=== PATIENT | female | born 1985 | race Caucasian/White ===

== ENCOUNTER 2017-08-30 18:56 | Emergency (ER) | payer SELFPAY, MEDICAID ==
[2017-08-30 23:57] LABS: ADD MAN DIFF? NO
[2017-08-31 00:01] LABS: WHITE BLOOD COUNT 8.3 10^3/ul (4.8-10.8)
[2017-08-31 00:01] LABS: BASOPHILS % 0.5 % (0.0-2.0); EOSINOPHILS # 0.1 10^3/ul (0.0-0.5); EOSINOPHILS % 0.7 % (0.0-7.0); HEMATOCRIT 33.6 % (37.0-47.0); HEMOGLOBIN 11.3 g/dl (12.0-16.0); LYMPHOCYTES # 1.5 10^3/ul (0.8-2.9); LYMPHOCYTES % 17.5 % (15.0-51.0); MEAN CORPUSCULAR HEMOGLOBIN 32.6 pg (29.0-33.0); MEAN CORPUSCULAR HGB CONC 33.6 g/dl (32.0-37.0); MEAN CORPUSCULAR VOLUME 96.8 fl (82.0-101.0); MEAN PLATELET VOLUME 10.6 fl (7.4-10.4); MONOCYTE # 0.6 10^3/ul (0.3-0.9); MONOCYTES % 7.3 % (0.0-11.0); NEUTROPHIL # 6.1 10^3/ul (1.6-7.5); NEUTROPHILS % 73.3 % (39.0-77.0); PLATELET COUNT 278 10^3/UL (140-415); RED BLOOD COUNT 3.47 10^6/ul (4.20-5.40); RED CELL DISTRIBUTION WIDTH 13.2 % (11.5-14.5)
[2017-08-31 00:17] LABS: ANION GAP 15 (8-16); BLOOD UREA NITROGEN 8 mg/dl (7-20); CALCIUM 9.5 mg/dl (8.4-10.2); CARBON DIOXIDE 25 mmol/L (21-31); CHLORIDE 103 mmol/L (97-110); CREATININE 0.48 mg/dl (0.44-1.00); GLUCOSE 81 mg/dl (70-220); POTASSIUM 3.6 mmol/L (3.5-5.1); SODIUM 139 mmol/L (135-144)
[2017-08-31 00:50] LABS: ADD UMIC YES; UR ASCORBIC ACID NEGATIVE (NEGATIVE); UR BILIRUBIN (Dip) NEGATIVE (NEGATIVE); UR BLOOD (Dip) 2+ mg/dL (NEGATIVE); UR CLARITY CLEAR (CLEAR); UR COLOR YELLOW (YELLOW); UR GLUCOSE (Dip) NEGATIVE (NEGATIVE); UR KETONES (Dip) 2+ mg/dL (NEGATIVE); UR LEUKOCYTE ESTERASE (Dip) NEGATIVE Leu/ul (NEGATIVE); UR MUCUS MANY /HPF (NONE SEEN); UR NITRITE (Dip) NEGATIVE (NEGATIVE); UR RBC 4 /HPF (0-5); UR SPECIFIC GRAVITY (Dip) 1.024 (1.003-1.030); UR SQUAMOUS EPITHELIAL CELL FEW /HPF (FEW); UR TOTAL PROTEIN (Dip) NEGATIVE (NEGATIVE); UR UROBILINOGEN (Dip) NEGATIVE (NEGATIVE); UR WBC 0 /HPF (0-5)
== END 2017-08-31 01:23 | disposition home or self-care (01) ==
LOC: FTE 08-31 01:23
DX: O20.9 Hemorrhage in early pregnancy, unspecified (principal); Z3A.17 17 weeks gestation of pregnancy
CPT/HCPCS: 36415; 76810; 76817; 80048; 81001; 84702; 85025; 86900; 86901; 99284-25

== ENCOUNTER 2017-11-27 18:02 | Outpatient (CLI) | payer MEDICAID ==
[2017-11-27 18:53] LABS: ADD MAN DIFF? NO
[2017-11-27 18:55] LABS: WHITE BLOOD COUNT 10.2 10^3/ul (4.8-10.8)
[2017-11-27 18:55] LABS: BASOPHILS % 0.3 % (0.0-2.0); EOSINOPHILS # 0.1 10^3/ul (0.0-0.5); EOSINOPHILS % 0.6 % (0.0-7.0); HEMATOCRIT 31.5 % (37.0-47.0); HEMOGLOBIN 10.4 g/dl (12.0-16.0); LYMPHOCYTES # 1.5 10^3/ul (0.8-2.9); LYMPHOCYTES % 14.5 % (15.0-51.0); MEAN CORPUSCULAR HEMOGLOBIN 32.4 pg (29.0-33.0); MEAN CORPUSCULAR VOLUME 98.1 fl (82.0-101.0); MEAN PLATELET VOLUME 10.1 fl (7.4-10.4); MONOCYTE # 0.8 10^3/ul (0.3-0.9); MONOCYTES % 7.7 % (0.0-11.0); NEUTROPHIL # 7.7 10^3/ul (1.6-7.5); NEUTROPHILS % 75.6 % (39.0-77.0); PLATELET COUNT 285 10^3/UL (140-415); RED BLOOD COUNT 3.21 10^6/ul (4.20-5.40)
== END 2017-11-27 22:00 | disposition home or self-care (01) ==
LOC: OBT 18:02 → L-D 18:03 → OBT 22:00
DX: O9A.213 Injury, poisoning and certain other consequences of external causes complicating pregnancy, third trimester (principal); Z3A.30 30 weeks gestation of pregnancy
CPT/HCPCS: 76818; 85025; 85460; 86850; 86900; 86901

== ENCOUNTER 2017-11-27 22:28 | Emergency (ER) | payer MEDICAID ==
[2017-11-28] MEDS: ACETAMINOPHEN 500 MG TAB PO (01:19)
== END 2017-11-28 02:01 | disposition home or self-care (01) ==
LOC: FTE 22:28
DX: O9A.213 Injury, poisoning and certain other consequences of external causes complicating pregnancy, third trimester (principal); S30.1XXA Contusion of abdominal wall, initial encounter; V89.2XXA Person injured in unspecified motor-vehicle accident, traffic, initial encounter; Z3A.28 28 weeks gestation of pregnancy
CPT/HCPCS: 99283; Z7502

== ENCOUNTER 2018-02-06 01:50 | Inpatient (IN) | payer MEDICAID ==
[2018-02-06] MEDS ORDERED: CARBOPROST 250 MCG INJ IM ×2 (03:00→04:30)
[2018-02-06] MEDS ORDERED: LIDOCAINE 1% (MPF) 30 ML INJ INJ (03:00)
[2018-02-06] MEDS ORDERED: MISOPROSTOL 200 MCG TAB PR ×2 (03:00→04:30)
[2018-02-06] MEDS ORDERED: BUTORPHANOL 2 MG INJ IV (03:00)
[2018-02-06] MEDS ORDERED: METHYLERGONOVINE 0.2 MG INJ IM ×2 (03:00→04:30)
[2018-02-06] MEDS ORDERED: IBUPROFEN 600 MG TAB PO ×2 (03:00→06:00)
[2018-02-06] MEDS ORDERED: OXYTOCIN 30 UNITS/LR 500 ML IV ×3 (03:00→04:30)
[2018-02-06] MEDS: LACTATED RINGER'S 1,000 ML IV* (03:11)
[2018-02-06] MEDS: AMPICILLIN 2 GM/NS (PMX) 100 ML IV (03:11)
[2018-02-06 03:19] LABS: ADD MAN DIFF? NO
[2018-02-06 03:22] LABS: BASOPHILS % 0.2 % (0.0-2.0); EOSINOPHILS % 0.4 % (0.0-7.0); HEMATOCRIT 32.8 % (37.0-47.0); HEMOGLOBIN 10.6 g/dl (12.0-16.0); LYMPHOCYTES # 1.9 10^3/ul (0.8-2.9); LYMPHOCYTES % 20.7 % (15.0-51.0); MEAN CORPUSCULAR HEMOGLOBIN 30.1 pg (29.0-33.0); MEAN CORPUSCULAR HGB CONC 32.3 g/dl (32.0-37.0); MEAN CORPUSCULAR VOLUME 93.2 fl (82.0-101.0); MEAN PLATELET VOLUME 10.8 fl (7.4-10.4); MONOCYTE # 0.8 10^3/ul (0.3-0.9); MONOCYTES % 8.9 % (0.0-11.0); NEUTROPHIL # 6.2 10^3/ul (1.6-7.5); PLATELET COUNT 275 10^3/UL (140-415); RED BLOOD COUNT 3.52 10^6/ul (4.20-5.40); RED CELL DISTRIBUTION WIDTH 14.5 % (11.5-14.5)
[2018-02-06 03:50] LABS: INR 1.08; PROTIME 14.1 Sec (11.9-14.9); PT RATIO 1.1
[2018-02-06 04:10] LABS: HEPATITIS B SURFACE ANTIGEN NEGATIVE (NEGATIVE)
[2018-02-06 04:20] LABS: PARTIAL THROMBOPLASTIN TIME 24.5 Sec (25.0-35.0)
[2018-02-06] MEDS: OXYTOCIN 30 UNITS/LR 500 ML IV ×3 (04:24→10:03)
[2018-02-06] MEDS ORDERED: DIPHENHYDRAMINE 25 MG CAP PO (04:30)
[2018-02-06] MEDS ORDERED: NACL 0.9% 3 ML SYG IV (04:30)
[2018-02-06] MEDS ORDERED: ZOLPIDEM 5 MG TAB PO (04:30)
[2018-02-06] MEDS ORDERED: ACETAMINOPHEN 325 MG TAB PO (04:30)
[2018-02-06] MEDS ORDERED: ONDANSETRON 4 MG INJ IV (04:30)
[2018-02-06 04:38] LABS: CBV Base Excess -3.1 mmol/L; CBV COHb 1.2 %; CBV Oxygen Sat 47.4 mmHG; CBV Total Hemglobin 15.2 g/dl; Cord Blood Venous pO2 23.3 mmHG (15.0-45.0); Fraction OxyHgb Cord Venous 46.2 %; MODE ROOM AIR; MetHgb Cord Venous 1.3 %; Sample Type Blood venous; Site CORD
[2018-02-06 04:39] LABS: AADO2 Cord Arterial 64.7 mmHg; Arterial Cord Blood pCO2 60.5 mmHG (25-50); CBA Base Excess -4.5 mmol/L; CBA COHb 0.3 %; CBA Oxygen Sat 17.2 mmHG; CBA Total Hemglobin 15.5 g/dl; Cord Blood Arterial pO2 12.6 mmHG (15.0-45.0); Fraction OxyHgb Cord Arterial 16.8 %; MODE ROOM AIR; Site CORD
[2018-02-06] MEDS: IBUPROFEN 600 MG TAB PO ×3 (05:00→18:34)
[2018-02-06] MEDS ORDERED: AMPICILLIN 1 GM/NS (PMX) 50 ML IV (07:00)
[2018-02-06] MEDS: SENNA/DOCUSATE NA (8.6MG/50MG) TAB PO ×2 (09:00→21:00)
[2018-02-06 09:17] LABS: HEMATOCRIT 32.2 % (37.0-47.0); HEMOGLOBIN 10.4 g/dl (12.0-16.0)
[2018-02-06] MEDS: LANOLIN 7 GM TUBE TOP (14:09)
[2018-02-06] MEDS: WITCH HAZEL/GLYCERIN PAD PR (14:09)
[2018-02-06 22:24] LABS: RAPID PLASMA REAGIN NONREACTIVE (NR)
[2018-02-06] MEDS: HYDROCODONE/APAP (5/325) TAB PO (22:54)
[2018-02-07] MEDS: IBUPROFEN 600 MG TAB PO ×4 (06:25→17:59)
[2018-02-07 07:51] LABS: ADD MAN DIFF? NO
[2018-02-07 07:58] LABS: WHITE BLOOD COUNT 8.3 10^3/ul (4.8-10.8)
[2018-02-07 07:58] LABS: BASOPHILS % 0.2 % (0.0-2.0); EOSINOPHILS # 0.1 10^3/ul (0.0-0.5); EOSINOPHILS % 0.6 % (0.0-7.0); HEMATOCRIT 29.8 % (37.0-47.0); HEMOGLOBIN 9.4 g/dl (12.0-16.0); LYMPHOCYTES # 2.1 10^3/ul (0.8-2.9); LYMPHOCYTES % 25.1 % (15.0-51.0); MEAN CORPUSCULAR HEMOGLOBIN 29.7 pg (29.0-33.0); MEAN CORPUSCULAR HGB CONC 31.5 g/dl (32.0-37.0); MEAN PLATELET VOLUME 11.3 fl (7.4-10.4); MONOCYTE # 0.6 10^3/ul (0.3-0.9); MONOCYTES % 7.1 % (0.0-11.0); NEUTROPHIL # 5.5 10^3/ul (1.6-7.5); NEUTROPHILS % 66.2 % (39.0-77.0); PLATELET COUNT 265 10^3/UL (140-415); RED BLOOD COUNT 3.17 10^6/ul (4.20-5.40); RED CELL DISTRIBUTION WIDTH 14.8 % (11.5-14.5)
[2018-02-07] MEDS: SENNA/DOCUSATE NA (8.6MG/50MG) TAB PO ×2 (09:06→21:00)
[2018-02-08] MEDS: IBUPROFEN 600 MG TAB PO ×3 (05:42→11:44)
[2018-02-08] MEDS: FERROUS GLUCONATE (EC) 325 MG TAB PO (08:49)
[2018-02-08] MEDS: SENNA/DOCUSATE NA (8.6MG/50MG) TAB PO (08:49)
[2018-02-08] MEDS: DIPHTH/TET/ACEL PERTUSS (ADULT) 0.5 ML VIAL IM* (10:34)
== END 2018-02-08 13:56 | disposition home or self-care (01) | DRG 775 ==
LOC: OBT 01:50 → L-D 01:50 → OBT 02:19 → L-D 02:19 → PP1 15:09
PROVIDERS: Obstetrics & Gynecology
PROC: 10E0XZZ Delivery of Products of Conception, External Approach (ICD-10-PCS; principal; 2018-02-06)
PROC: 0HQ9XZZ Repair Perineum Skin, External Approach (ICD-10-PCS; 2018-02-06)
PROC: 3E0234Z Introduction of Serum, Toxoid and Vaccine into Muscle, Percutaneous Approach (ICD-10-PCS; 2018-02-08)
DX: O70.0 First degree perineal laceration during delivery (principal); O69.81X0 Labor and delivery complicated by cord around neck, without compression, not applicable or unspecified; Z3A.39 39 weeks gestation of pregnancy; Z37.0 Single live birth; Z23 Encounter for immunization
CPT/HCPCS: 36415; 36600; 82803; 85014; 85018; 85025; 85610; 85730; 86592; 86850; 86900; 86901; 87340; 88307; 90715